=== PATIENT | male | born 1995 | race Caucasian/White ===

== ENCOUNTER 2021-04-17 14:26 | Emergency (ER) | payer OTHER ==
[~2021-04-17] VITALS: Ht 182.9 cm; Wt 86.2 kg
--- NOTE | 2021-04-17 15:03 | NUR ---
ARRIVAL PRESENTED TO ED RM#5 AMBULATORY WITH C/O BACK PAIN, 12/30 THAT STARTED THURSDAY. VS OBTAINED. DR. PACHECO NOTIFIED OF PATIENT ARRIVAL.
[2021-04-17 15:13] VITALS: BP 131/74
[2021-04-17] MEDS ORDERED: TORADOL IM STA (15:46)
--- NOTE | 2021-04-17 15:51 | ER.PDOC ---
General Chief Complaint: Lower Back Pain or Injury Stated Complaint: POSSIBLE BACK INJURY Time seen by MD: 15:48 Source: patient Exam Limitations: no limitations History of Present Illness Initial Comments Low back pain for 3 days. Patient twisted his back getting out of the chair and felt a pop. No urinary or fecal incontinence. No numbness or tingling of lower extremities. Severity/Quality: moderate Associated Symptoms: lower back pain Allergies: Coded Allergies: No Known Allergies (Unverified , 04/17/21) Past Medical History Medical History: no pertinent history Surgical History: appendectomy Family History Significant Family History: no pertinent family hx Social History Smoking: non-smoker Alcohol Use: none Drug Use: none Review of Systems Constitutional: no symptoms reported EENTM: no symptoms reported Respiratory: no symptoms reported Cardiovascular: no symptoms reported Gastrointestinal: no symptoms reported Musculoskeletal: see HPI All Other Systems: Reviewed and Negative Physical Exam General Appearance: No Apparent Distress, WD/WN HEENT: PERRL/EOMI, Normal ENT Inspection, TMs Normal, Pharynx Normal Neck: Non-Tender, Normal Alignment Cardiovascular/Respiratory: Regular Rate, Rhythm, No M/R/G, Normal Peripheral Pulses, No JVD, Normal Breath Sounds, No Respiratory Distress Gastrointestinal: Normal Bowel Sounds, No Organomegaly, No Pulsatile Mass, Non Tender, Soft Back: Other (tenderness L spine) Extremities: No Evidence of Injury, Normal Range of Motion, Non-Tender, No Pedal Edema, Pelvis Stable Neuro/Psych: Alert, learning development specialist nml/symmetrical, mood/effect nml, No Motor/Sensory Deficits, Relexes nml Skin: Normal Color, Warm/Dry Results/Orders Results/Orders Orders - MAGDA PACHECO MD Ketorolac Tromethamine (Toradol) (04/17/21 15:46) Ketorolac Tromethamine (Toradol) (04/17/21 15:52) Xr Lspine 2-3v (04/17/21 16:02) Vital Signs Date Time Temp Pulse Resp B/P (MAP) Pulse Ox O2 Delivery O2 Flow Rate FiO2 04/17/21 15:13 98.1 85 19 95 04/17/21 15:13 98.1 85 19 131/74 (93) 95 Room Air 04/17/21 15:13 98.1 85 19 Administered Medications Medications (Trade) Dose Ordered Sig/Thom Route PRN Reason Start Time Stop Time Status Last Admin Dose Admin Ketorolac Tromethamine (Toradol) 60 mg STAT STAT IM 04/17/21 15:46 04/17/21 15:49 DC 04/17/21 15:55 60 MG Progress Progress X-ray shows no acute abnormality involving the lumbar spine. Patient received a Toradol shot and his pain is better. ER DEPART Departure Time of Disposition: 16:54 Disposition: 01 HOME / SELF CARE / HOMELESS Impression: Primary Impression: Low back pain Condition: Improved Referrals: VADIM ROGERS (PCP) PRIMARY CARE PROVIDER Additional Instructions: Diclofenac Methocarbamol Follow-up with your PCP in 1 week Return to ED if worsening pain or concerns Duration or Time Spent with Pa: 10 min Problem Qualifiers Primary Impression: Low back pain Chronicity: acute Back pain laterality: bilateral Sciatica presence: without sciatica Qualified Codes: M54.50 - Low back pain, unspecified MAGDA PACHECO MD Apr 17, 2021 15:51
[2021-04-17] MEDS ORDERED: TORADOL ONE (15:52)
[2021-04-17 17:11] VITALS: BP 132/74
== END 2021-04-17 17:12 | disposition home or self-care (01) ==
LOC: ER 14:26
DX: M54.50 Low back pain, unspecified (principal); Z79.1 Long term (current) use of non-steroidal anti-inflammatories (NSAID); Z90.49 Acquired absence of other specified parts of digestive tract
CPT/HCPCS: 72100; 96372; 99283; J1885

== ENCOUNTER → 2022-12-29 | Outpatient (CLI) | payer OTHER | END | disposition home or self-care (01) | LOC: RAD 16:53 | PROVIDERS: ATTEND Nurse Practitioner Family | DX: S20.212A Contusion of left front wall of thorax, initial encounter (principal); X58.XXXA Exposure to other specified factors, initial encounter; Y93.89 Activity, other specified; Y92.89 Other specified places as the place of occurrence of the external cause; Y99.8 Other external cause status | CPT/HCPCS: 71046; 71100-LT ==